=== PATIENT | male | born 1950 | race Caucasian/White ===

== ENCOUNTER → 2016-04-28 | Outpatient (CLI) | payer MEDICARE ==
[~2016-04-28] MED LIST: ACLI400A IH; ALBU8.5H2 IH; AMLO5TAB2 PO; ASP81TEC PO; ATOR40TA PO; ATOR40TA70 PO; BENZ-13 PO; BPR75T PO; BUDE6HFA IH; CALC-656 PO; CALC1TAB94 PO; CLN.1TRX PO; CRV6.25T PO; CYCL10TA9 PO; DCS100C PO; DOCU100T2 PO; DOCU100T7 PO; FLUT9.9S NS; GABA-486 PO; GUAI-366 PO; HYDR-2890 PO; HYDR-3454 PO; HYDR-3714 PO; HYDR-3720 PO; LACT10SO5 PO; LACT10SO60 PR; LEVO500T2 PO; LEVO750T6 PO; LOSA100T7 PO; LOSARTAN; LVF500T PO; MELO-195 PO; META-84 PO; METH4TAB PO; METR500T PO; METR500T17 PO; Oxygen; PANT40TA PO; PANT40VI3 PO; POLY17PO23 PO; PRAS10TA6 PO; Polyethylene Glycol PO; ROFL500T3 PO; RT-COMBINH INH; SCR1T1 PO; SUCR1TAB PO; VLS80C PO
--- OUTSIDE RECORDS SUMMARY | 2016-04-28 13:41 | XMS REPORT | Continuity of Care Document ---
Author Author [facility] Organization [facility] Address Unknown Phone Unavailable Care Team Providers Care Clinical Auditor Name Role Phone NAVA LAYNE MD PCP Insurance Providers Payer Name Policy Number Subscriber Name Relationship [employer] [id number] Aura Zaldivar 17 Self / Same As Patient Advance Directives Directive Response Recorded Date/Time Advance Directives No 07/21/14 9:46pm Health Care Power of Associate Broker Yes 07/21/14 9:46pm Organ Donor No 07/21/14 9:46pm Resuscitation Status Full Code 07/21/14 9:46pm Problems Medical Problems Problem Onset Date Status HYPERTENSION Unknown Active Compression fracture of T12 vertebra Unknown Active Compression fracture Unknown Active Compression fracture of T12 vertebra Unknown Active Abdominal pain of unknown etiology Unknown Active Abdominal pain of unknown etiology Unknown Active Right lower quadrant pain Unknown Active Abdominal aortic aneurysm Unknown Active 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 Constipation Unknown Active Right lower quadrant pain Unknown Active Constipation Unknown Active Medications Medication Dose Route Sig Days/Qty Instructions Order Date Discontinued Date Status Budesonide/Formoterol Fumarate 2 Puff IH TWICE A DAY 08/03/12 Active Aclidinium [place] 1 Puff IH TWICE A DAY 10/05/12 Active Bupropion Hcl 1.5 Tab PO TWICE A DAY 10/05/12 02/07/13 Discontinued Amlodipine Besylate (Norvasc 5 Mg) 5 Mg PO DAILY 10/05/12 02/07/13 Discontinued Aspirin 81 Mg PO DAILY 10/07/12 Active Atorvastatin Calcium 40 Mg PO DAILY 10/07/12 Active Carvedilol 6.25 Mg PO TWICE A DAY 10/07/12 06/23/14 Discontinued Prasugrel Hydrochloride 10 Mg PO DAILY 10/07/12 06/23/14 Discontinued Valsartan 80 Mg PO DAILY 10/07/12 06/23/14 Discontinued [Oxygen] 2 2 liters at HS 02/07/13 07/11/14 Discontinued Roflumilast 500 Mcg PO 1 Days 02/07/13 05/06/13 Discontinued Albuterol/Ipratropium 1 Puff INH 1 Qty 02/07/13 06/28/14 Discontinued Clonidine Hcl 0.1 Mg PO TWICE A DAY 10 Qty 05/07/13 06/23/14 Discontinued [Losartan] 06/23/14 06/28/14 Discontinued Amlodipine Besylate (Norvasc 5 Mg) 5 Mg PO DAILY 06/23/14 Active Metaxalone 800 Mg PO EVERY 6 HOURS PRN muscle spasm/pain 20 Qty 06/28/14 Discontinued Meloxicam (Mobic) 15 Mg PO DAILY 30 Qty 06/23/14 07/11/14 Discontinued Hydrocodone Bit/Acetaminophen 1 Tab PO EVERY 6 HOURS PRN back pain 24 Qty 06/23/14 07/11/14 Discontinued Albuterol 1 Puff IH EVERY 4HRS PRN SHORTNESS OF BREATH 06/28/14 Active Losartan Potassium 100 Mg PO DAILY 06/28/14 Active Cyclobenzaprine HCl (Flexeril) 10 Mg PO EVERY 8HRS PRN MUSCLE SPASMS 06/28/14 Active Calcium Carbonate/Vitamin D3 2 Each PO DAILY 06/28/14 07/11/14 Discontinued Docusate Sodium 100 Mg PO DAILY 06/28/14 07/11/14 Discontinued Lactulose 30 Ml PO EVERY 6 HOURS PRN CONSTIPATION 07/06/14 Active Gabapentin 100 Mg PO BEDTIME 07/10/14 Active Lactulose 30 Ml SC NEEDED 473 Qty 07/10/14 07/11/14 Discontinued Hydrocodone Bit/Acetaminophen 1 Tab PO EVERY 6 HOURS PRN BACK PAIN Active Meloxicam (Mobic) 15 Mg PO DAILY 07/11/14 Active Calcium Carbonate/Vitamin D3 2 Tab PO DAILY 07/11/14 Active Polyethylene Glycol 17 Gm PO DAILY 30 Qty 07/12/14 Active Social History Social History Problem Response Recorded Date/Time Alcohol Use Denies Use 07/11/2014 12:45am Recreational Drug Use No 07/11/2014 12:45am Recent Foreign Travel No 07/21/2014 5:01pm Recent Infectious Disease Exposure No 05/06/2013 11:43pm Sexually Transmitted Disease No 07/11/2014 12:45am HIV/AIDS No 07/11/2014 12:45am Do you dip or chew tobacco? No 07/11/2014 1:40am Hospital Discharge Instructions No hospital discharge instructions. Plan of Care Discharge Date 07/21/14 9:45pm Disposition 01 HOME, SELF-CARE Prescriptions See Medications Section Functional Status No functional status results. Allergies, Adverse Reactions, Alerts Allergen Type Severity Reaction Status Last Updated Angiotensin-converting enzyme inhibitor Adverse Reaction Mild COUGH Active 10/06/12 Immunizations Name Given Type Tetanus Booster (TDap) Less than 5yrs Historical pneumococcal polysaccharide PPV23 07/12/14 Administered pneumococcal polysaccharide PPV23 07/12/14 Administered Vital Signs Acute Vital Signs Vital Response Date/Time Temperature (Fahrenheit) 98.5 degrees F (97.6 - 99.5) Temperature (Calculated Celsius) 36.63738 degrees C (36.4 - 37.5) Temperature Source Temporal Pulse Rate (adult) 87 bpm (60 - 90) Respiratory Rate 20 bpm (12 - 24) O2 Sat by Pulse Oximetry 97 % (88 - 100) Blood Pressure 143/87 mm Hg Pain Pain Intensity 4 Height (Feet) 5 feet Height (Inches) 6.00 inches Height (Calculated Centimeters) 167.371991 cm Weight (Pounds) 137 pounds Weight (Ounces) 9.6 oz Weight (Calculated Grams) 92964.311 gm Weight (Calculated Kilograms) 62.282006 kilograms Calculated BMI 22.11 Results Laboratory Results Test Name Result Units Flags Reference Collection Date/Time Result Date/ Time Comments White Blood Count 7.9 10^3/uL 4.3-11.0 06/30/2014 12:34pm 06/30/2014 12 :41pm Red Blood Count 4.46 10^6/uL 4.35-5.85 06/30/2014 12:34pm 06/30/2014 12 :41pm Hemoglobin 13.4 G/DL 13.3-17.7 06/30/2014 12:34pm 06/30/2014 12:41pm Hematocrit 40 % 40-54 06/30/2014 12:34pm 06/30/2014 12:41pm Mean Corpuscular Volume 90 FL 80-99 06/30/2014 12:06/30/2014 12: 41pm Mean Corpuscular Hemoglobin 30 PG 25-34 06/30/2014 12:06/30/2014 12:41pm Mean Corpuscular Hemoglobin Concent 34 G/DL 32-36 06/30/2014 12: 12:41pm Red Cell Distribution Width 13.5 % 10.0-14.5 06/30/2014 12:2014 12:41pm Platelet Count 267 10^3/uL 130-400 06/30/2014 12:06/30/2014 12: 41pm Mean Platelet Volume 9.7 FL 7.4-10.4 06/30/2014 12:06/30/2014 12: 41pm Neutrophils (%) (Auto) 74 % 42-75 06/30/2014 12:06/30/2014 12: 41pm Lymphocytes (%) (Auto) 13 % 12-44 06/30/2014 12:06/30/2014 12: 41pm Monocytes (%) (Auto) 10 % 0-12 06/30/2014 12:06/30/2014 12:41pm Eosinophils (%) (Auto) 3 % 0-10 06/30/2014 12:06/30/2014 12:41pm Basophils (%) (Auto) 0 % 0-10 06/30/2014 12:06/30/2014 12:41pm Neutrophils # (Auto) 5.9 X 10^3 1.8-7.8 06/30/2014 12:06/30/2014 12:41pm Lymphocytes # (Auto) 1.0 X 10^3 1.0-4.0 06/30/2014 12:06/30/2014 12:41pm Monocytes # (Auto) 0.8 X 10^3 0.0-1.0 06/30/2014 12:06/30/2014 12: 41pm Eosinophils # (Auto) 0.2 10^3/uL 0.0-0.3 06/30/2014 12:34pm 06/30/2014 12:41pm Basophils # (Auto) 0.0 10^3/uL 0.0-0.1 06/30/2014 12:34pm 06/30/2014 12 :41pm Prothrombin Time 12.0 SEC L 12.2-14.7 06/30/2014 12:34pm 06/30/2014 12: 50pm INR Comment 0.9 0.8-1.4 06/30/2014 12:34pm 06/30/2014 12:50pm INTERPRETIVE DATA SUGGESTED THERAPEUTIC RANGE FOR INR'S: VENOUS THROMBOSIS, PULMONARY EMBOLISM, OR PREVENTION OF SYSTEMIC EMBOLISM (EG. IN ATRIAL FIBRILLATION): 2.0 - 3.0 MECHANICAL PROSTHETIC HEART VALVES: 2.5 - 3.5* *NOTE: INR'S UP TO 4.5 MAY BE NECESSARY IN SELECTED GROUPS OF HIGH RISK PATIENTS. [employer] CONSENSUS CONFERENCE ON ANTITHROMBOTIC THERAPY (2000). White Blood Count 8.6 10^3/uL 4.3-11.0 07/06/2014 1:07/06/2014 1: 38am Red Blood Count 4.53 10^6/uL 4.35-5.85 07/06/2014 1:07/06/2014 1: 38am Hemoglobin 13.5 G/DL 13.3-17.7 07/06/2014 1:07/06/2014 1:38am Hematocrit 40 % 40-54 07/06/2014 1:07/06/2014 1:38am Mean Corpuscular Volume 88 FL 80-99 07/06/2014 1:07/06/2014 1: 38am Mean Corpuscular Hemoglobin 30 PG 25-34 07/06/2014 1:07/06/2014 1: 38am Mean Corpuscular Hemoglobin Concent 34 G/DL 32-36 07/06/2014 1: 1:38am Red Cell Distribution Width 13.7 % 10.0-14.5 07/06/2014 1:2014 1:38am Platelet Count 307 10^3/uL 130-400 07/06/2014 1:07/06/2014 1:38am Mean Platelet Volume 10.3 FL 7.4-10.4 07/06/2014 1:07/06/2014 1: 38am Neutrophils (%) (Auto) 74 % 42-75 07/06/2014 1:07/06/2014 1:38am Lymphocytes (%) (Auto) 15 % 12-44 07/06/2014 1:07/06/2014 1:38am Monocytes (%) (Auto) 9 % 0-12 07/06/2014 1:07/06/2014 1:38am Eosinophils (%) (Auto) 3 % 0-10 07/06/2014 1:07/06/2014 1:38am Basophils (%) (Auto) 0 % 0-10 07/06/2014 1:07/06/2014 1:38am Neutrophils # (Auto) 6.3 X 10^3 1.8-7.8 07/06/2014 1:07/06/2014 1: 38am Lymphocytes # (Auto) 1.3 X 10^3 1.0-4.0 07/06/2014 1:07/06/2014 1: 38am Monocytes # (Auto) 0.8 X 10^3 0.0-1.0 07/06/2014 1:07/06/2014 1: 38am Eosinophils # (Auto) 0.3 10^3/uL 0.0-0.3 07/06/2014 1:07/06/2014 1 :38am Basophils # (Auto) 0.0 10^3/uL 0.0-0.1 07/06/2014 1:07/06/2014 1: 38am Urine Color YELLOW 07/06/2014 3:07/06/2014 3:34am Urine Clarity CLEAR 07/06/2014 3:07/06/2014 3:34am Urine pH 5 5-9 07/06/2014 3:07/06/2014 3:34am Urine Specific [place] 1.025 * 1.016-1.022 07/06/2014 3:2014 3:34am Urine Protein 1+ * NEGATIVE 07/06/2014 3:07/06/2014 3:34am Urine Glucose (UA) NEGATIVE NEGATIVE 07/06/2014 3:07/06/2014 3: 34am Urine RBC (Auto) NEGATIVE NEGATIVE 07/06/2014 3:07/06/2014 3: 34am Urine Ketones 1+ * NEGATIVE 07/06/2014 3:07/06/2014 3:34am Urine Nitrite NEGATIVE NEGATIVE 07/06/2014 3:1907/06/2014 3:34am Urine Bilirubin NEGATIVE NEGATIVE 07/06/2014 3:1907/06/2014 3: 34am Urine Urobilinogen NORMAL MG/DL NORMAL 07/06/2014 3:07/06/2014 3: 34am Urine Leukocyte Esterase 1+ * NEGATIVE 07/06/2014 3:1907/06/2014 3: 34am Urine RBC NONE /HPF 07/06/2014 3:1907/06/2014 3:34am Urine WBC 0-2 /HPF 07/06/2014 3:1907/06/2014 3:34am Urine Bacteria NEGATIVE /HPF 07/06/2014 3:07/06/2014 3:34am Urine Squamous Epithelial Cells NONE /HPF 07/06/2014 3:2014 3:34am Urine Crystals NONE /LPF 07/06/2014 3:07/06/2014 3:34am Urine Casts NONE /LPF 07/06/2014 3:07/06/2014 3:34am Urine Mucus LARGE /LPF * 07/06/2014 3:07/06/2014 3:34am Urine Culture Indicated NO 07/06/2014 3:07/06/2014 3:34am Sodium Level 136 MMOL/L 135-145 07/06/2014 1:4707/06/2014 2:12am Potassium Level 4.5 MMOL/L 3.6-5.0 07/06/2014 1:4707/06/2014 2:12am Chloride Level 104 MMOL/L 98-107 07/06/2014 1:4707/06/2014 2:12am Carbon Dioxide Level 23 MMOL/L 21-32 07/06/2014 1:47am 07/06/2014 2: 12am Blood Urea Nitrogen 27 MG/DL H 7-18 07/06/2014 1:4707/06/2014 2:12am Creatinine 1.05 MG/DL 0.60-1.30 07/06/2014 1:47am 07/06/2014 2:12am BUN/Creatinine Ratio 26 07/06/2014 1:4707/06/2014 2:12am Estimat Glomerular Filtration Rate > 60 07/06/2014 1:472014 2:12am GFR INTERPRETIVE DATA UNITS FOR ESTIMATED GFR (eGFR): mL/min/1.73 M2 REFERENCE RANGE FOR ESTIMATED GFR (eGFR) eGFR NORMAL eGFR >60 MODERATELY DECREASED eGFR 30-59 SEVERLY DECREASED eGFR 15-29 KIDNEY FAILURE <15 (OR DIALYSIS) Glucose Level 112 MG/DL H 70-105 07/06/2014 1:4707/06/2014 2:12am Calcium Level 9.4 MG/DL 8.5-10.1 07/06/2014 1:4707/06/2014 2:12am Total Bilirubin 0.5 MG/DL 0.1-1.0 07/06/2014 1:4707/06/2014 2:12am Alkaline Phosphatase 121 U/L 40-136 07/06/2014 1:4707/06/2014 2: 12am Aspartate Amino Transf (AST/SGOT) 36 U/L H 5-34 07/06/2014 1:472014 2:12am Alanine Aminotransferase (ALT/SGPT) 34 U/L 0-55 07/06/2014 1:4707/06 2:12am Total Protein 6.9 G/DL 6.4-8.2 07/06/2014 1:4707/06/2014 2:12am Albumin 3.9 G/DL 3.2-4.5 07/06/2014 1:4707/06/2014 2:12am White Blood Count 9.4 10^3/uL 4.3-11.0 07/10/2014 3:5507/10/2014 4: 11am Red Blood Count 5.14 10^6/uL 4.35-5.85 07/10/2014 3:5507/10/2014 4: 11am Hemoglobin 15.2 G/DL 13.3-17.7 07/10/2014 3:5507/10/2014 4:11am Hematocrit 45 % 40-54 07/10/2014 3:5507/10/2014 4:11am Mean Corpuscular Volume 88 FL 80-99 07/10/2014 3:5507/10/2014 4: 11am Mean Corpuscular Hemoglobin 30 PG 25-34 07/10/2014 3:07/10/2014 4: 11am Mean Corpuscular Hemoglobin Concent 34 G/DL 32-36 07/10/2014 3:06/2014 4:11am Red Cell Distribution Width 13.7 % 10.0-14.5 07/10/2014 3:2014 4:11am Platelet Count 346 10^3/uL 130-400 07/10/2014 3:5507/10/2014 4:11am Mean Platelet Volume 9.9 FL 7.4-10.4 07/10/2014 3:5507/10/2014 4: 11am Neutrophils (%) (Auto) 71 % 42-75 07/10/2014 3:07/10/2014 4:11am Lymphocytes (%) (Auto) 17 % 12-44 07/10/2014 3:07/10/2014 4:11am Monocytes (%) (Auto) 7 % 0-12 07/10/2014 3:07/10/2014 4:11am Eosinophils (%) (Auto) 4 % 0-10 07/10/2014 3:07/10/2014 4:11am Basophils (%) (Auto) 1 % 0-10 07/10/2014 3:07/10/2014 4:11am Neutrophils # (Auto) 6.7 X 10^3 1.8-7.8 07/10/2014 3:07/10/2014 4: 11am Lymphocytes # (Auto) 1.6 X 10^3 1.0-4.0 07/10/2014 3:07/10/2014 4: 11am Monocytes # (Auto) 0.7 X 10^3 0.0-1.0 07/10/2014 3:07/10/2014 4: 11am Eosinophils # (Auto) 0.4 10^3/uL H 0.0-0.3 07/10/2014 3:07/10/2014 4 :11am Basophils # (Auto) 0.1 10^3/uL 0.0-0.1 07/10/2014 3:5507/10/2014 4: 11am Urine Color YELLOW 07/10/2014 3:50am 07/10/2014 4:16am Urine Clarity CLEAR 07/10/2014 3:50am 07/10/2014 4:16am Urine pH 6 5-9 07/10/2014 3:50am 07/10/2014 4:16am Urine Specific [place] 1.025 * 1.016-1.022 07/10/2014 3:50am 2014 4:16am Urine Protein NEGATIVE NEGATIVE 07/10/2014 3:50am 07/10/2014 4:16am Urine Glucose (UA) NEGATIVE NEGATIVE 07/10/2014 3:50am 07/10/2014 4: 16am Urine RBC (Auto) NEGATIVE NEGATIVE 07/10/2014 3:50am 07/10/2014 4: 16am Urine Ketones NEGATIVE NEGATIVE 07/10/2014 3:50am 07/10/2014 4:16am Urine Nitrite NEGATIVE NEGATIVE 07/10/2014 3:50am 07/10/2014 4:16am Urine Bilirubin NEGATIVE NEGATIVE 07/10/2014 3:50am 07/10/2014 4: 16am Urine Urobilinogen NORMAL MG/DL NORMAL 07/10/2014 3:50am 07/10/2014 4: 16am Urine Leukocyte Esterase 1+ * NEGATIVE 07/10/2014 3:50am 07/10/2014 4: 16am Urine RBC NONE /HPF 07/10/2014 3:50am 07/10/2014 4:16am Urine WBC 0-2 /HPF 07/10/2014 3:50am 07/10/2014 4:16am Urine Bacteria NEGATIVE /HPF 07/10/2014 3:50am 07/10/2014 4:16am Urine Squamous Epithelial Cells NONE /HPF 07/10/2014 3:50am 2014 4:16am Urine Crystals NONE /LPF 07/10/2014 3:50am 07/10/2014 4:16am Urine Casts PRESENT /LPF 07/10/2014 3:50am 07/10/2014 4:16am Urine Hyaline Casts RARE /LPF 07/10/2014 3:50am 07/10/2014 4:16am Urine Mucus LARGE /LPF * 07/10/2014 3:50am 07/10/2014 4:16am Urine Culture Indicated NO 07/10/2014 3:50am 07/10/2014 4:16am Sodium Level 136 MMOL/L 135-145 07/10/2014 3:55am 07/10/2014 4:32am Potassium Level 4.4 MMOL/L 3.6-5.0 07/10/2014 3:55am 07/10/2014 4:32am Chloride Level 100 MMOL/L 98-107 07/10/2014 3:5507/10/2014 4:32am Carbon Dioxide Level 22 MMOL/L 21-32 07/10/2014 3:55am 07/10/2014 4: 32am Blood Urea Nitrogen 25 MG/DL H 7-18 07/10/2014 3:55am 07/10/2014 4:32am Creatinine 1.24 MG/DL 0.60-1.30 07/10/2014 3:55am 07/10/2014 4:32am BUN/Creatinine Ratio 20 07/10/2014 3:55am 07/10/2014 4:32am Estimat Glomerular Filtration Rate 59 07/10/2014 3:5507/10/2014 4:32am GFR INTERPRETIVE DATA UNITS FOR ESTIMATED GFR (eGFR): mL/min/1.73 M2 REFERENCE RANGE FOR ESTIMATED GFR (eGFR) eGFR NORMAL eGFR >60 MODERATELY DECREASED eGFR 30-59 SEVERLY DECREASED eGFR 15-29 KIDNEY FAILURE <15 (OR DIALYSIS) Glucose Level 110 MG/DL H 70-105 07/10/2014 3:5507/10/2014 4:32am Calcium Level 10.5 MG/DL H 8.5-10.1 07/10/2014 3:5507/10/2014 4:32am Total Bilirubin 0.8 MG/DL 0.1-1.0 07/10/2014 3:5507/10/2014 4:32am Alkaline Phosphatase 146 U/L H 40-136 07/10/2014 3:55am 07/10/2014 4: 32am Aspartate Amino Transf (AST/SGOT) 27 U/L 5-34 07/10/2014 3:55am 2014 4:32am Alanine Aminotransferase (ALT/SGPT) 33 U/L 0-55 07/10/2014 3:5507/10 4:32am Total Protein 8.0 G/DL 6.4-8.2 07/10/2014 3:55am 07/10/2014 4:32am Albumin 4.7 G/DL H 3.2-4.5 07/10/2014 3:55am 07/10/2014 4:32am C-Reactive Protein High Sensitivity 0.76 MG/DL H 0.00-0.50 07/10/2014 3: 55am 07/10/2014 4:32am White Blood Count 6.0 10^3/uL 4.3-11.0 07/12/2014 4:1507/12/2014 4: 43am Red Blood Count 4.61 10^6/uL 4.35-5.85 07/12/2014 4:1507/12/2014 4: 43am Hemoglobin 13.7 G/DL 13.3-17.7 07/12/2014 4:1507/12/2014 4:43am Hematocrit 41 % 40-54 07/12/2014 4:07/12/2014 4:43am Mean Corpuscular Volume 88 FL 80-99 07/12/2014 4:07/12/2014 4: 43am Mean Corpuscular Hemoglobin 30 PG 25-34 07/12/2014 4:07/12/2014 4: 43am Mean Corpuscular Hemoglobin Concent 34 G/DL 32-36 07/12/2014 4:08/2014 4:43am Red Cell Distribution Width 13.1 % 10.0-14.5 07/12/2014 4:2014 4:43am Platelet Count 309 10^3/uL 130-400 07/12/2014 4:07/12/2014 4:43am Mean Platelet Volume 10.2 FL 7.4-10.4 07/12/2014 4:07/12/2014 4: 43am Neutrophils (%) (Auto) 65 % 42-75 07/12/2014 4:07/12/2014 4:43am Lymphocytes (%) (Auto) 19 % 12-44 07/12/2014 4:07/12/2014 4:43am Monocytes (%) (Auto) 12 % 0-12 07/12/2014 4:1507/12/2014 4:43am Eosinophils (%) (Auto) 3 % 0-10 07/12/2014 4:1507/12/2014 4:43am Basophils (%) (Auto) 1 % 0-10 07/12/2014 4:07/12/2014 4:43am Neutrophils # (Auto) 3.9 X 10^3 1.8-7.8 07/12/2014 4:07/12/2014 4: 43am Lymphocytes # (Auto) 1.1 X 10^3 1.0-4.0 07/12/2014 4:07/12/2014 4: 43am Monocytes # (Auto) 0.7 X 10^3 0.0-1.0 07/12/2014 4:07/12/2014 4: 43am Eosinophils # (Auto) 0.2 10^3/uL 0.0-0.3 07/12/2014 4:07/12/2014 4 :43am Basophils # (Auto) 0.1 10^3/uL 0.0-0.1 07/12/2014 4:07/12/2014 4: 43am Sodium Level 136 MMOL/L 135-145 07/12/2014 4:07/12/2014 5:03am Potassium Level 4.2 MMOL/L 3.6-5.0 07/12/2014 4:07/12/2014 5:03am Chloride Level 104 MMOL/L 98-107 07/12/2014 4:07/12/2014 5:03am Carbon Dioxide Level 20 MMOL/L L 21-32 07/12/2014 4:07/12/2014 5: 03am Blood Urea Nitrogen 14 MG/DL 7-18 07/12/2014 4:07/12/2014 5:03am Creatinine 0.88 MG/DL 0.60-1.30 07/12/2014 4:07/12/2014 5:03am BUN/Creatinine Ratio 16 07/12/2014 4:07/12/2014 5:03am Estimat Glomerular Filtration Rate > 60 07/12/2014 4:2014 5:03am GFR INTERPRETIVE DATA UNITS FOR ESTIMATED GFR (eGFR): mL/min/1.73 M2 REFERENCE RANGE FOR ESTIMATED GFR (eGFR) eGFR NORMAL eGFR >60 MODERATELY DECREASED eGFR 30-59 SEVERLY DECREASED eGFR 15-29 KIDNEY FAILURE <15 (OR DIALYSIS) Glucose Level 80 MG/DL 70-105 07/12/2014 4:1507/12/2014 5:03am Calcium Level 9.4 MG/DL 8.5-10.1 07/12/2014 4:1507/12/2014 5:03am Total Bilirubin 1.0 MG/DL 0.1-1.0 07/12/2014 4:1507/12/2014 5:03am Alkaline Phosphatase 122 U/L 40-136 07/12/2014 4:1507/12/2014 5: 03am Aspartate Amino Transf (AST/SGOT) 25 U/L 5-34 07/12/2014 4:152014 5:03am Alanine Aminotransferase (ALT/SGPT) 21 U/L 0-55 07/12/2014 4:07/12 5:03am Total Protein 6.8 G/DL 6.4-8.2 07/12/2014 4:1507/12/2014 5:03am Albumin 3.9 G/DL 3.2-4.5 07/12/2014 4:07/12/2014 5:03am White Blood Count 9.8 10^3/uL 4.3-11.0 07/21/2014 9:5007/21/2014 9: 55am Red Blood Count 5.25 10^6/uL 4.35-5.85 07/21/2014 9:5007/21/2014 9: 55am Hemoglobin 15.4 G/DL 13.3-17.7 07/21/2014 9:5007/21/2014 9:55am Hematocrit 46 % 40-54 07/21/2014 9:50am 07/21/2014 9:55am Mean Corpuscular Volume 88 FL 80-99 07/21/2014 9:5007/21/2014 9: 55am Mean Corpuscular Hemoglobin 29 PG 25-34 07/21/2014 9:50am 07/21/2014 9: 55am Mean Corpuscular Hemoglobin Concent 33 G/DL 32-36 07/21/2014 9:50am 9:55am Red Cell Distribution Width 13.1 % 10.0-14.5 07/21/2014 9:50am 2014 9:55am Platelet Count 285 10^3/uL 130-400 07/21/2014 9:5007/21/2014 9:55am Mean Platelet Volume 10.3 FL 7.4-10.4 07/21/2014 9:5007/21/2014 9: 55am Neutrophils (%) (Auto) 67 % 42-75 07/21/2014 9:5007/21/2014 9:55am Lymphocytes (%) (Auto) 20 % 12-44 07/21/2014 9:5007/21/2014 9:55am Monocytes (%) (Auto) 9 % 0-12 07/21/2014 9:5007/21/2014 9:55am Eosinophils (%) (Auto) 3 % 0-10 07/21/2014 9:5007/21/2014 9:55am Basophils (%) (Auto) 1 % 0-10 07/21/2014 9:5007/21/2014 9:55am Neutrophils # (Auto) 6.5 X 10^3 1.8-7.8 07/21/2014 9:5007/21/2014 9: 55am Lymphocytes # (Auto) 2.0 X 10^3 1.0-4.0 07/21/2014 9:5007/21/2014 9: 55am Monocytes # (Auto) 0.9 X 10^3 0.0-1.0 07/21/2014 9:5007/21/2014 9: 55am Eosinophils # (Auto) 0.3 10^3/uL 0.0-0.3 07/21/2014 9:5007/21/2014 9 :55am Basophils # (Auto) 0.1 10^3/uL 0.0-0.1 07/21/2014 9:5007/21/2014 9: 55am Sodium Level 136 MMOL/L 135-145 07/21/2014 9:5007/21/2014 10:18am Potassium Level 4.4 MMOL/L 3.6-5.0 07/21/2014 9:5007/21/2014 10: 18am Chloride Level 100 MMOL/L 98-107 07/21/2014 9:5007/21/2014 10:18am Carbon Dioxide Level 23 MMOL/L 21-32 07/21/2014 9:5007/21/2014 10: 18am Blood Urea Nitrogen 22 MG/DL H 7-18 07/21/2014 9:50am 07/21/2014 10:18am Creatinine 1.40 MG/DL H 0.60-1.30 07/21/2014 9:50am 07/21/2014 10:18am BUN/Creatinine Ratio 16 07/21/2014 9:50am 07/21/2014 10:18am Estimat Glomerular Filtration Rate 51 07/21/2014 9:50am 07/21/2014 10:18am GFR INTERPRETIVE DATA UNITS FOR ESTIMATED GFR (eGFR): mL/min/1.73 M2 REFERENCE RANGE FOR ESTIMATED GFR (eGFR) eGFR NORMAL eGFR >60 MODERATELY DECREASED eGFR 30-59 SEVERLY DECREASED eGFR 15-29 KIDNEY FAILURE <15 (OR DIALYSIS) Glucose Level 105 MG/DL 70-105 07/21/2014 9:50am 07/21/2014 10:18am Calcium Level 10.2 MG/DL H 8.5-10.1 07/21/2014 9:50am 07/21/2014 10:18am Total Bilirubin 1.0 MG/DL 0.1-1.0 07/21/2014 9:50am 07/21/2014 10:18am Alkaline Phosphatase 139 U/L H 40-136 07/21/2014 9:50am 07/21/2014 10: 18am Aspartate Amino Transf (AST/SGOT) 23 U/L 5-34 07/21/2014 9:50am 2014 10:18am Alanine Aminotransferase (ALT/SGPT) 17 U/L 0-55 07/21/2014 9:50am 07/21 10:18am Total Protein 8.1 G/DL 6.4-8.2 07/21/2014 9:50am 07/21/2014 10:18am Albumin 4.4 G/DL 3.2-4.5 07/21/2014 9:50am 07/21/2014 10:18am Procedures Procedure Status Date Provider(s) PERQ VERTEBRAL AUGMENTATION completed 06/30/14 MAME DRUMMOND MD Encounters Encounter Location Date/Time Discharged Inpatient Via [facility] 07/21/14 5:47pm Registered Clinic [facility] 07/21/14 9:34am Discharged Inpatient Via [facility] 05/05/15 9:04am Departed Emergency Room [facility] 07/10/14 3:21am Departed Emergency Room [facility] 07/06/14 12:12am Registered [facility] Day [facility] 06/30/14 11:35am Registered Clinic [facility] 06/28/14 9:24am Departed Emergency Room Via [facility] 06/23/14 10:01am
--- NOTE | 2016-04-28 16:29 | Diagnostic Imaging Report ---
INDICATION: Shortness of breath. Comparison made with prior examination of 10/13/2015. FINDINGS: The heart size is normal. There is air trapping compatible with COPD. There is no pleural effusion, pneumothorax, or pneumonia. Mediastinum is unremarkable. IMPRESSION: Air trapping compatible with COPD, otherwise unremarkable. Dictated by: Dictated on workstation # [id number]
== END ==
LOC: RAD 13:37
PROVIDERS: ATTEND Nurse Practitioner Family
DX: R06.02 Shortness of breath (principal)
CPT/HCPCS: 71020

== ENCOUNTER 2016-05-30 15:41 | Outpatient (RCR) | payer MEDICARE | END 2016-08-28 | disposition home or self-care (01) | DX: R05 Cough (principal) ==

== ENCOUNTER 2016-12-12 18:01 | Emergency (ER) | payer MEDICARE ==
[~2016-12-12] VITALS: Ht 167.6 cm; Wt 64.4 kg
--- NOTE | 2016-12-12 19:47 | ED General ---
General Chief Complaint: Chest Wall/Rib Pain Stated Complaint: L SIDE BACK/RIB PAIN Nursing Triage Note: pt reports left sided rib pain that started thursday evening and was intermittent until last night. since has had a constant pain that radiates to back. pain rating 4/10 at this time, ache. at times becomes unbearable and sharp. has been using heating pad intermittently with slight relief. Nursing Sepsis Screen: No Definite Risk Source of Information: Patient Exam Limitations: No Limitations History of Present Illness Time Seen by Provider: 19:36 Initial Comments Here with left rib pain that has been intermittent over the last week but noted that it is persistent today. Nonradiating. Does feel short of breath and is wheezing. Has just his breathing treatments but not as much as he can. Currently on a steroid taper and has decreased to 10 mg daily. He did take 40 mg today though an effort to help out. Does have history of COPD. Denies fever or chills. Denies nausea, vomiting, sweating or weakness. Denies injury to the chest. Timing/Duration: 1 Week, Changing Over Time, Getting Worse Severity: Moderate Associated Systoms: Chest Pain (left chest wall aching), No Cough, No Fever/ Chills, No Loss of Appetite, No Nausea/Vomiting, Shortness of Air, No Weakness Allergies and Home Medications Allergies Coded Allergies: DEVORA Inhibitors (Unverified Adverse Reaction, Mild, COUGH, 10/06/12) Home Medications Aclidinium [place] 400 Mcg Aer.pow.ba, 1 PUFF IH BID, (Reported) Albuterol 8.5 Gm Hfa.aer.ad, 1 PUFF IH Q4H PRN for SHORTNESS OF BREATH, ( Reported) Amlodipine Besylate 5 Mg Tablet, 5 MG PO DAILY, (Reported) Aspirin 81 Mg Tabec, 81 MG PO DAILY, (Reported) Atorvastatin Calcium 40 Mg Tablet, 40 MG PO DAILY, (Reported) Budesonide/Formoterol Fumarate 10.2 Gm Hfa.aer.ad, 2 PUFF IH BID, (Reported) Calcium Carbonate/Vitamin D3 1 Each Tablet, 2 TAB PO DAILY, (Reported) Docusate Sodium 100 Mg Tablet, 100 MG PO DAILY, (Reported) Fluticasone Propionate 9.9 Ml Willis.susp, 9.9 ML NS BID, #1 Prescribed by: KATIUSKA REINA on 10/13/15 0443 Gabapentin 100 Mg Capsule, 100 MG PO HS, (Reported) Hydrocodone Bit/Acetaminophen 1 Each Tablet, 1 TAB PO Q4H PRN for PAIN, ( Reported) Hydrocodone/Acetaminophen 1 Each Tablet, 1-2 EACH PO Q6H PRN for PAIN-MODERATE, #20 Ref 0 Prescribed by: ALEJANDRO GREEN on 12/13/16 0026 Losartan Potassium 100 Mg Tablet, 100 MG PO DAILY, (Reported) Pantoprazole Sodium 40 Mg Tablet.dr, 40 MG PO DAILY, (Reported) Prednisone 20 Mg Tab, 40 MG PO DAILY, #14 Ref 0 Prescribed by: ALEJANDRO GREEN on 12/13/16 0026 Sucralfate 1 G Tablet, 1 GM PO QID, (Reported) [Polyethylene Glycol] 17 GM PACK, 17 GM PO BID Prescribed by: SHAE PARIKH on 08/04/14 1726 Constitutional: see HPI, No chills, No diaphoresis, No fever, No weakness EENTM: No nose congestion, No throat pain Respiratory: cough, short of breath, wheezing Cardiovascular: chest pain, No edema, No palpitations Gastrointestinal: No abdominal pain, No nausea, No vomiting Genitourinary: no symptoms reported Musculoskeletal: muscle pain Skin: no symptoms reported Psychiatric/Neurological: No Symptoms Reported All Other Systems Reviewed Negative Unless Noted: Yes Past Dtnugot-Ajbzya-Wwenci Hx Patient Social History Alcohol Use: Denies Use Recreational Drug Use: No Smoking Status: Current Everyday Smoker Type Used: Cigarettes 2nd Hand Smoke Exposure: Yes Recent Foreign Travel: No Contact w/Someone Who Travel: No Recent Infectious Disease Expo: No Recent Hopitalizations: No Immunizations Up To Date Tetanus Booster (TDap): More than 5yrs Seasonal Allergies Seasonal Allergies: No Surgeries History of Surgeries: Yes ( KYPHOPLASTY, EGD/COLONOSCOPY) Surgeries: Appendectomy, Cardiac, Coronary Stent, Gallbladder, Orthopedic Respiratory History of Respiratory Disorde: Yes Respiratory Disorders: COPD, Emphysema Cardiovascular History of Cardiac Disorders: Yes (STENT X1) Cardiac Disorders: Coronary Artery Disease, Heart Attack, High Cholesterol, Hypertension Neurological History of Neurological Disord: No Reproductive System Hx Reproductive Disorders: No Sexually Transmitted Disease: No HIV/AIDS: No Genitourinary History of Genitourinary Disor: No Gastrointestinal History of Gastrointestinal Di: Yes (GASTRITIS/"EROSIONS" ON EGD 07/27/14) Gastrointestinal Disorders: Chronic Constipation, Diverticulosis, Polyps, Ulcer , Gall Bladder Disease Musculoskeletal History of Musculoskeletal Dis: Yes (COMPRESSION FX 06/23/14 --S/P KYPHOPLASTY 06/30/14, BILATERAL HIP PAIN ) Musculoskeletal Disorders: Arthritis, Fractures Endocrine History of Endocrine Disorders: No Cancer History of Cancer: No Psychosocial History of Psychiatric Problem: No Integumentary History of Skin or Integumenta: No Blood Transfusions History of Blood Disorders: No Reviewed Nursing Assessment Reviewed/Agree w Nursing PMH: Yes Family Medical History Significant Family History: Heart Disease, Cancer, Diabetes Family Medial History: Arthritis 19 MOTHER, Onset:Unknown Cancer of mouth 19 FATHER, Onset:Unknown FH: macular degeneration 19 MOTHER, Onset:Unknown FH: skin cancer SON, Onset:Unknown Hypertension 19 MOTHER, Onset:Unknown Thyroid disease DAUGHTER, Onset:Unknown Physical Exam Vital Signs Vital Sign - Last 12Hours 12/12/16 18:45 Temp 97.4 Pulse 90 Resp 22 B/P (MAP) 130/84 Pulse Ox 94 O2 Delivery Room Air Capillary Refill : Less Than 3 Seconds General Appearance: WD/WN, Moderate Distress HEENT: PERRL/EOMI, Pharynx Normal Neck: Non Tender, Supple Respiratory: Accessory Muscle Use, Decreased Breath Sounds, Expiration, Inspiration, Wheezing, Other (tender to left chest wall) Cardiovascular: Regular Rate, Rhythm, No Murmur Gastrointestinal: Non Tender, Soft Back: Normal Inspection, No CVA Tenderness, No Vertebral Tenderness Extremity: Normal Range of Motion, Non Tender Neurologic/Psychiatric: Alert, Oriented x3 Skin: Normal Color, Warm/Dry Progress/Results/Core Measures Results/Orders Lab Results Laboratory Tests Test 12/12/16 20:15 Range/Units White Blood Count 9.1 4.3-11.0 10^3/uL Red Blood Count 5.08 4.35-5.85 10^6/uL Hemoglobin 15.1 13.3-17.7 G/DL Hematocrit 45 40-54 % Mean Corpuscular Volume 89 80-99 FL Mean Corpuscular Hemoglobin 30 25-34 PG Mean Corpuscular Hemoglobin Concent 33 32-36 G/DL Red Cell Distribution Width 15.5 H 10.0-14.5 % Platelet Count 240 130-400 10^3/uL Mean Platelet Volume 9.8 7.4-10.4 FL Neutrophils (%) (Auto) 88 H 42-75 % Lymphocytes (%) (Auto) 10 L 12-44 % Monocytes (%) (Auto) 2 0-12 % Eosinophils (%) (Auto) 0 0-10 % Basophils (%) (Auto) 0 0-10 % Neutrophils # (Auto) 8.0 H 1.8-7.8 X 10^3 Lymphocytes # (Auto) 0.9 L 1.0-4.0 X 10^3 Monocytes # (Auto) 0.2 0.0-1.0 X 10^3 Eosinophils # (Auto) 0.0 0.0-0.3 10^3/uL Basophils # (Auto) 0.0 0.0-0.1 10^3/uL Prothrombin Time 12.0 L 12.2-14.7 SEC INR Comment 0.9 0.8-1.4 Activated Partial Thromboplast Time 27 24-35 SEC D-Dimer 0.66 H 0.00-0.49 UG/ML Sodium Level 138 135-145 MMOL/L Potassium Level 4.6 3.6-5.0 MMOL/L Chloride Level 102 98-107 MMOL/L Carbon Dioxide Level 24 21-32 MMOL/L Anion Gap 12 5-14 MMOL/L Blood Urea Nitrogen 21 H 7-18 MG/DL Creatinine 0.84 0.60-1.30 MG/DL Estimat Glomerular Filtration Rate > 60 BUN/Creatinine Ratio 25 Glucose Level 143 H 70-105 MG/DL Calcium Level 9.8 8.5-10.1 MG/DL Magnesium Level 2.2 1.8-2.4 MG/DL Total Bilirubin 0.7 0.1-1.0 MG/DL Aspartate Amino Transf (AST/SGOT) 21 5-34 U/L Alanine Aminotransferase (ALT/SGPT) 20 0-55 U/L Alkaline Phosphatase 92 40-136 U/L Myoglobin 45.5 10.0-92.0 NG/ML Troponin I < 0.30 <0.30 NG/ML Total Protein 7.1 6.4-8.2 GM/DL Albumin 4.0 3.2-4.5 GM/DL Amylase Level 68 25-125 U/L Lipase 9 8-78 U/L My Orders Orders - ALEJANDRO GREEN MD Ekg Tracing (12/12/16 19:01) Chest Pa/Lat (2 View) (12/12/16 19:36) Cbc With Automated Diff (12/12/16 20:04) Magnesium (12/12/16 20:04) Cardiac Profile 1 (12/12/16 20:04) Comprehensive Metabolic Panel (12/12/16 20:04) Myoglobin Serum (12/12/16 20:04) Protime With Inr (12/12/16 20:04) Partial Thromboplastin Time (12/12/16 20:04) Lipid Panel (12/13/16 06:00) Aspirin Chewable Tablet (Baby Aspirin Ch (12/12/16 20:15) Saline Lock/Iv-Start (12/12/16 20:04) Lipase (12/12/16 20:04) Amylase (12/12/16 20:04) Fibrin Degradation Products (12/12/16 20:04) Albuterol Pre-Mix Nebs (Rt) (Proventil P (12/12/16 21:03) Albuterol/Ipra Inhalation Soln (Duoneb I (12/12/16 21:15) Svn Sm Volume Nebulizer Rt-Rfs (12/12/16 21:03) Svn Sm Volume Nebulizer Rt-Rfs (12/12/16 21:03) Ct Angio Chest W (12/12/16 21:47) General/Regular (12/12/16 Dinner) Ns Iv 1000 Ml (Sodium Chloride 0.9%) (12/12/16 22:01) Iohexol Injection (Omnipaque 350 Mg/Ml 1 (12/12/16 22:15) Ns (Ivpb) (Sodium Chloride 0.9% Ivpb Bag (12/12/16 22:15) Albuterol Pre-Mix Nebs (Rt) (Proventil P (12/12/16 22:48) Svn Sm Volume Nebulizer Rt-Rfs (12/12/16 22:48) Albuterol Pre-Mix Nebs (Rt) (Proventil P (12/12/16 22:54) Svn Sm Volume Nebulizer Rt-Rfs (12/12/16 22:54) Hydrocodone/Apap 5/325 Tablet (Lortab 5 (12/12/16 22:58) Ketorolac Injection (Toradol Injection) (12/12/16 22:58) Morphine Injection (Morphine Injection (12/12/16 23:56) Rx-Hydrocodone/Apap 5-325 Mg (Rx-Vicodin (12/13/16 00:30) Medications Given in ED Current Medications Medications Dose Ordered Sig/Hodan Route Start Time Stop Time Status Last Admin Dose Admin Albuterol/ Ipratropium 3 ml ONCE ONCE INH 12/12/16 21:15 12/12/16 21:16 DC 12/12/16 21:10 3 ML Aspirin 324 mg ONCE ONCE PO 12/12/16 20:15 12/12/16 20:16 DC 12/12/16 20:16 324 MG Sodium Chloride 1,000 ml @ 0 mls/hr Q0M ONCE IV 12/12/16 22:01 12/12/16 22:02 DC 12/12/16 22:34 0 MLS/HR Vital Signs/I&O Vital Sign - Last 12Hours 12/12/16 12/12/16 12/12/16 12/13/16 18:45 21:10 22:57 00:00 Temp 97.4 97.4 Pulse 90 Resp 22 B/P (MAP) 130/84 Pulse Ox 94 93 91 O2 Delivery Room Air Room Air Room Air Blood Pressure Mean: 99 Progress Note : Progress Note Seen and evaluated. IV, labs, EKG and chest x-ray ordered. Patient declined pain medicine. DuoNeb and albuterol treatment given. Monitor patient. Treatments did help. Patient has continued pain. D-dimer positive. CT angiogram of the chest ordered. Normal saline 1 L bolus. Patient with continued pain and now asking for pain medicine. Toradol 15 mg IV and hydrocodone 5/325 one tab by mouth given. Monitor patient. CT reports noted. There is a small left rib fracture. The aortic findings appear to be chronic when looking at previous scans and reports. Patient was informed of these findings and will need follow-up. Pain appears to be related to the left rib fracture. He has had increased difficulty with breathing recently due to his emphysema. Patient did receive 2 more treatments of albuterol here and this did help. We will continue his steroids at 40 mg daily for the next several days and then he can continue his taper. Patient is to follow-up with his doctor for recheck and further evaluation. Discharged home with return precautions. Patient verbalize understanding instructions and agreement with plan. ECG Initial ECG Impression Date: Dec 12, 2016 Initial ECG Impression Time: 19:14 Initial ECG Rate: 83 Initial ECG Rhythm: Normal Sinus Initial ECG Comparisson: Unchanged Comment Sinus rhythm with extremely right axis deviation. Similar to previous of 12 October 2016. No evidence of ST elevation AR. Interpreted by me. Diagnostic Imaging Diagonstic Imaging: Xray Plain Films/CT/US/NM/MRI: chest Comments NAME: [facility] REC#: [id number] PT STATUS: REG ER : 1950 PHYSICIAN: ALEJANDRO GREEN MD ADMIT DATE: 12/12/16/ER Draft Date of Exam:12/12/16 CHEST PA/LAT (2 VIEW) INDICATION: Left-sided chest pain going to the back since Thursday. COMPARISON STUDY: Chest dated 04/28/16. FINDINGS: Frontal and lateral views of the chest demonstrate stable COPD changes. Previous kyphoplasty is again identified. There are no focal infiltrates. Heart size and vascularity are normal. IMPRESSION: Stable COPD. Dictated on workstation # [id number] Dict: 12/12/161956 Trans: 12/12/162003 MICHI [id number] Interpreted by: CASANDRA RODAS MD Electronically signed by: Diagonstic Imaging: CT Plain Films/CT/US/NM/MRI: chest Comments Evidence of emphysematous changes throughout both lungs. Minimal/mild bronchial wall thickening is suggested which may represent inflammatory airway disease. Minimal bronchitic tases is also likely present. Minimal dependent atelectasis involving both lower lobes. No pleural effusions. No significant adenopathy. The heart appears normal in size. No evidence of significant pericardial effusion. The ascending aorta is at the upper limits of normal measuring up to 4 cm in diameter. Aneurysmal dilation of the descending aorta as noted, measuring up to 3.6 cm in diameter. Mild to moderate atherosclerotic vascular calcifications are seen involving the visualized aorta. 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 Cannot definitely exclude the possibility of penetrating ulcers. Correlate clinically. Age indeterminate compression fractures involving the mid thoracic vertebral bodies. Evidence of prior kyphoplasty involving the lower thoracic vertebral body compression fracture. Probable subacute fracture involving the lateral eighth left rib. Correlate clinically with point tenderness. Reviewed: Reviewed by Me Departure Impression Impression: Primary Impression: Left rib fracture Qualified Codes: S22.32XA - Fracture of one rib, left side, initial encounter for closed fracture Additional Impression: Emphysema with both acute and chronic bronchitis Disposition: HOME, SELF-CARE Condition: Stable Departure-Patient Inst. Decision time for Depature: 00:25 Referrals: NAVA LAYNE MD (PCP/Family) Primary Care Physician Patient Instructions: Rib Fracture (DC), Acute Bronchitis, Adult (DC) Add. Discharge Instructions: All discharge instructions reviewed with patient and/or family. Voiced understanding. Take medications as directed. Follow-up with your doctor in a few days for recheck. Return for worse pain, breathing problems, weakness, fever, chills, vomiting or other concerns as needed. Scripts Prednisone (Prednisone) 20 Mg Tab 40 MG PO DAILY, #14 TAB 0 Refills Prov: ALEJANDRO GREEN MD 12/13/16 Hydrocodone/Acetaminophen (Hydrocodon -Acetaminophen 5-325) 1 Each Tablet 1-2 EACH PO Q6H Y for PAIN-MODERATE, #20 TAB 0 Refills Prov: ALEJANDRO GREEN MD 12/13/16 Copy Copies To 1: NAVA LAYNE MD, TIMOTHY D MD Dec 12, 2016 19:47
--- NOTE | 2016-12-12 20:04 | Diagnostic Imaging Report ---
INDICATION: Left-sided chest pain going to the back since Thursday. COMPARISON STUDY: Chest dated 04/28/16. FINDINGS: Frontal and lateral views of the chest demonstrate stable COPD changes. Previous kyphoplasty is again identified. There are no focal infiltrates. Heart size and vascularity are normal. IMPRESSION: Stable COPD. Dictated by: Dictated on workstation # [id number]
[2016-12-12] MEDS ORDERED: ASPIRIN 81 MG CHEW (CHILDREN'S ASA) PO ONE (20:15)
[2016-12-12 20:24] LABS: BASOPHILS % (AUTO) 0 % (0-10); EOSINOPHILS % (AUTO) 0 % (0-10); LYMPHOCYTES # (AUTO) 0.9 X 10^3 (1.0-4.0); LYMPHOCYTES % (AUTO) 10 % (12-44); MEAN CORPUSCULAR HEMOGLOBIN 30 PG (25-34); MEAN CORPUSCULAR HGB CONC 33 G/DL (32-36); MEAN CORPUSCULAR VOLUME 89 FL (80-99); MEAN PLATELET VOLUME 9.8 FL (7.4-10.4); MONOCYTES # (AUTO) 0.2 X 10^3 (0.0-1.0); MONOCYTES % (AUTO) 2 % (0-12); NEUTROPHILS % (AUTO) 88 % (42-75); PLATELET COUNT 240 10^3/uL (130-400); RED BLOOD COUNT 5.08 10^6/uL (4.35-5.85); RED CELL DISTRIBUTION WIDTH 15.5 % (10.0-14.5); WHITE BLOOD COUNT 9.1 10^3/uL (4.3-11.0)
[2016-12-12 20:43] LABS: INR 0.9 (0.8-1.4)
[2016-12-12 20:55] LABS: ALANINE AMINOTRANSFERASE 20 U/L (0-55); AMYLASE 68 U/L (25-125); ANION GAP 12 MMOL/L (5-14); ASPARTATE AMINO TRANSFERASE 21 U/L (5-34); BILIRUBIN,TOTAL 0.7 MG/DL (0.1-1.0); BLOOD UREA NITROGEN 21 MG/DL (7-18); BUN/CREATININE RATIO 25; CALCIUM 9.8 MG/DL (8.5-10.1); CARBON DIOXIDE 24 MMOL/L (21-32); CHLORIDE 102 MMOL/L (98-107); CREATININE SERUM 0.84 MG/DL (0.60-1.30); GFR ESTIMATED > 60; GLUCOSE 143 MG/DL (70-105); LIPASE 9 U/L (8-78); MAGNESIUM 2.2 MG/DL (1.8-2.4); POTASSIUM 4.6 MMOL/L (3.6-5.0); SODIUM 138 MMOL/L (135-145); TOTAL PROTEIN 7.1 GM/DL (6.4-8.2)
[2016-12-12 21:01] LABS: MYOGLOBIN SERUM 45.5 NG/ML (10.0-92.0)
[2016-12-12] MEDS ORDERED: RT-ALBUTEROL SULF 2.5 MG/3 ML PRE-MIX VIAL INH STA ×3 (21:03→22:54)
[2016-12-12] MEDS ORDERED: RT-ALBUTEROL/IPRATROPIUM 3 ML (DUONEB) VIAL INH ONE (21:15)
[2016-12-12] MEDS ORDERED: NS IV 1000 ML 1,000 ML IV ONE (22:01)
[2016-12-12] MEDS ORDERED: NS 100 ML (IVPB) BAG IV ONE (22:15)
[2016-12-12] MEDS ORDERED: IOHEXOL 350 MG/ML 150 ML (OMNIPAQUE 350) VIAL IV ONE (22:15)
[2016-12-12] MEDS ORDERED: KETOROLAC 30 MG/ML VIAL IVP STA (22:58)
[2016-12-12] MEDS ORDERED: HYDROcodone/APAP 5 MG/325 MG (LORTAB) TAB PO STA (22:58)
[2016-12-12] MEDS ORDERED: morphine INJ 10 MG/ML 1ML (SYR OR VIAL) IVP STA (23:56)
[2016-12-13] MEDS ORDERED: PRD20T PO (00:26)
[2016-12-13] MEDS ORDERED: HYDR-3812 PO (00:26)
[2016-12-13 00:28] VITALS: BP 133/92
[2016-12-13] MEDS ORDERED: RX-HYDROCODONE/APAP 5/325 MG #4 TAB PK PO PRN (00:30)
--- NOTE | 2016-12-13 07:15 | Diagnostic Imaging Report ---
PROCEDURE: CT angiography of the chest with contrast. TECHNIQUE: Multiple contiguous axial images were obtained through the chest after uneventful bolus administration of intravenous contrast. Reconstructed CTA MIP acquisitions were also performed. DATE: December 12, 2016. COMPARISON: Chest radiographs December 12, 2016. CT chest November 13, 2015. INDICATION: 66-year-old male, shortness of breath. Left-sided rib pain. FINDINGS: There are upper lobe predominant changes of centrilobular emphysema. There is no identified pulmonary nodule. There are very mild linear opacities in the right upper lobe anteriorly likely relating to mild scarring. There is minimal dependent atelectasis. There is no additional focal airspace consolidation. There is no pneumothorax. There is no pleural effusion. The central airways are patent. There is no identified pulmonary embolus. The main pulmonary artery is normal in caliber. There are atherosclerotic calcifications. The heart is not enlarged. There is no pericardial effusion. The celiac axis, superior mesenteric artery, and renal arteries are patent without high-grade stenosis. There is prominent plaque formation involving the descending thoracic aorta and visualized portions of the abdominal aorta. There is no identified abnormally enlarged mediastinal, hilar, or axillary lymph node which specifically meets CT size criteria for adenopathy. There is a hypervascular focus in the left lobe of the liver on axial image 123 which measures 6 mm in size. There is a hypervascular focus in the right lobe of the liver on axial image 131 measuring 7 mm in size. There are also peripheral hypervascular foci in the right lobe of the liver on axial image 140 measuring up to 4 and 5 mm in size. There is also hypervascular focus in the right lobe of the liver peripherally on axial image 124 measuring 6 mm in size. The visualized outer liver contours are not grossly nodular. There is nonspecific thickening of the bilateral adrenal glands. There is a 4 mm low-attenuation right renal lesion on axial image 38 too small to characterize. There is a partially visualized exophytic low-attenuation left renal lesion measuring 1.5 cm on axial image 144 with internal attenuation of one Hounsfield unit. This is compatible with a benign cyst in its visualized portions, although cannot be definitively characterized as it is incompletely imaged. There is a chronic appearing deformity of the left seventh rib. There are compression deformities of T4, T6, T7, T8, and T9 as well as T12. There are prior kyphoplasty changes at T11. There are limitations of skeletal assessment relating to lack of non-MIP truly coronal and sagittal oriented reformats. There is roughly 80% height loss at T9. There is additional vertebral body height loss at the additional compression fracture levels. There is no identified retropulsion. The compression deformity of T8 is not seen on comparison CT. The T6 compression deformity also is new. The T12 compression fracture is also new since prior CT chest. IMPRESSION: CT CHEST. 1. Multiple compression fractures of the thoracic spine. The T6, T8, and T12 compression fractures are new since November 13, 2015 and may be acute in age. 2. Prominent changes of centrilobular emphysema. 3. No identified pulmonary embolus or otherwise noted acute cardiopulmonary abnormality. Dictated by: Dictated on workstation # [id number]
== END 2016-12-13 00:32 | disposition home or self-care (01) ==
LOC: EDUNIT# 18:01 → ER 18:02
DX: S22.32XA Fracture of one rib, left side, initial encounter for closed fracture (principal); J43.9 Emphysema, unspecified; J20.9 Acute bronchitis, unspecified; J42 Unspecified chronic bronchitis; I25.10 Atherosclerotic heart disease of native coronary artery without angina pectoris; I25.2 Old myocardial infarction; E78.00 Pure hypercholesterolemia, unspecified; M19.90 Unspecified osteoarthritis, unspecified site; I10 Essential (primary) hypertension; F17.210 Nicotine dependence, cigarettes, uncomplicated; Z90.49 Acquired absence of other specified parts of digestive tract; Z80.8 Family history of malignant neoplasm of other organs or systems; Z87.19 Personal history of other diseases of the digestive system; Z86.010 Personal history of colon polyps; Z95.5 Presence of coronary angioplasty implant and graft; Z79.82 Long term (current) use of aspirin; X58.XXXA Exposure to other specified factors, initial encounter
CPT/HCPCS: 36415; 71020; 71275; 80053; 82150; 83690; 83735; 83874; 84484; 85025; 85379; 85610; 85730; 93005; 94640; 96361; 96374; 96375

== ENCOUNTER → 2017-08-25 | Outpatient (CLI) | payer MEDICARE, OTHER ==
[~2017-08-25] MED LIST changes: +ACHD5005 PO; +CATHETER FLUSH 10 ML SYR IV PRN; -GUAI-366 PO; +GUAI-367 PO; +IOHEXOL 350 MG/ML 150 ML (OMNIPAQUE 350) VIAL IV ONE; +NS 100 ML (IVPB) BAG IV ONE; +PRD20T PO
[2017-08-25 14:50] LABS: BASOPHILS % (AUTO) 0 % (0-10); EOSINOPHILS % (AUTO) 0 % (0-10); HEMATOCRIT 43 % (40-54); HEMOGLOBIN 14.3 G/DL (13.3-17.7); LYMPHOCYTES # (AUTO) 0.5 X 10^3 (1.0-4.0); LYMPHOCYTES % (AUTO) 4 % (12-44); MEAN CORPUSCULAR HEMOGLOBIN 31 PG (25-34); MEAN CORPUSCULAR HGB CONC 33 G/DL (32-36); MEAN CORPUSCULAR VOLUME 92 FL (80-99); MONOCYTES # (AUTO) 0.5 X 10^3 (0.0-1.0); MONOCYTES % (AUTO) 4 % (0-12); NEUTROPHILS # (AUTO) 10.8 X 10^3 (1.8-7.8); NEUTROPHILS % (AUTO) 92 % (42-75); PLATELET COUNT 194 10^3/uL (130-400); RED BLOOD COUNT 4.69 10^6/uL (4.35-5.85); RED CELL DISTRIBUTION WIDTH 15.2 % (10.0-14.5); WHITE BLOOD COUNT 11.8 10^3/uL (4.3-11.0)
[2017-08-25 15:08] LABS: ANISOCYTOSIS SLIGHT; BAND NEUTROPHILS 4 %; BASOPHILS % (MANUAL) 0 %; BUN/CREATININE RATIO 29; CALCIUM 9.5 MG/DL (8.5-10.1); CARBON DIOXIDE 26 MMOL/L (21-32); CHLORIDE 104 MMOL/L (98-107); CREATININE SERUM 0.77 MG/DL (0.60-1.30); EOSINOPHILS % (MANUAL) 0 %; GFR ESTIMATED > 60; GLUCOSE 132 MG/DL (70-105); LYMPHOCYTES % (MANUAL) 4 %; MONOCYTES % (MANUAL) 5 %; NEUTROPHILS % (MANUAL) 87 %; POTASSIUM 4.4 MMOL/L (3.6-5.0); SODIUM 140 MMOL/L (135-145)
[2017-08-25 15:26] LABS: ABG BASE EXCESS 4.3 MMOL/L (-2.5-2.5); ABG OXYGEN SATURATION 93 % (94-100); ABG PCO2 44 MMHG (35-45); ABG PH 7.43 (7.37-7.43); ABG PO2 61 MMHG (79-93); ABG TCO2 29.8 MMOL/L (21.0-31.0)
[2017-08-25 15:27] LABS: ALLENS TEST POSITIVE; INSPIRED O2 5 L; PATIENT TEMP 98.4; VENTILATOR NO
--- NOTE | 2017-08-25 16:09 | Diagnostic Imaging Report ---
PROCEDURE: CT angiography of the chest with contrast. TECHNIQUE: Multiple contiguous axial images were obtained through the chest after uneventful bolus administration of intravenous contrast. Reconstructed CTA MIP acquisitions were also performed. INDICATION: COPD and hypoxia. COMPARISON: Prior CT angiogram of the chest from 12/12/2016. FINDINGS: Evaluation of the pulmonary arterial system is without evidence of thromboembolism. No filling defects are identified within the central, lobar, or segmental branches. The thoracic aorta shows atherosclerotic changes. No dissection is seen. No pericardial or pleural fluid is identified. No axillary lymphadenopathy is seen. A right paratracheal node measures 16 mm and appears to be increased since the CT from December 2016. This is indeterminate. No hilar lymphadenopathy is seen. A right hilar node appears stable at approximately 11 mm. Parenchymal evaluation does show severe centrilobular emphysematous changes. There appears to be some atelectasis or scarring in the right middle lobe and lingula. No discrete mass is identified. Several hyperdensities previously described in the liver are again noted and indeterminate. The left adrenal gland is enlarged and appears hyperplastic. There are cysts involving the left kidney. The previously noted thoracic compression fracture is again seen. No new abnormality is detected. IMPRESSION: 1. No evidence of pulmonary embolism or thoracic aortic dissection. 2. There has been some increase in the size of a right paratracheal lymph node since the prior CT from 12/12/2016, indeterminate. No pulmonary parenchymal mass is seen. Indeterminate hyper dense lesions in the liver are again seen. A PET/CT scan may be useful to evaluate the mediastinal node and evaluate for other sites of hypermetabolism, if clinically indicated. Dictated by: Dictated on workstation # [id number]
== END ==
LOC: RAD 14:32
PROVIDERS: ATTEND Nurse Practitioner Family
DX: J44.9 Chronic obstructive pulmonary disease, unspecified (principal); K76.89 Other specified diseases of liver; R59.0 Localized enlarged lymph nodes; Z72.0 Tobacco use
CPT/HCPCS: 36415; 36600; 71275; 80048; 82805; 83880; 85007; 85027